=== PATIENT | male | born 2000 | race Caucasian/White ===

== ENCOUNTER 2021-05-11 17:16 | Emergency (ER) | payer OTHER, SELFPAY ==
--- NOTE | ~2021-05-11 | XR_ITS ---
XR wrist RT min 3V 05/11/2021 17:36 INDICATION: Right wrist pain PROCEDURE: 4 views right wrist COMPARISON: No prior studies for comparison. FINDINGS: Fracture, dislocation or subluxation is not identified. The soft tissues appear within norm al limits. No foreign bodies are identified. IMPRESSION: 1: NO ACUTE BONE OR JOINT ABNORMALITY IDENTIFIED. Reviewed, dictated and finalized at location A. D [facility]TAIN
[2021-05-11 17:29] VITALS: BP 106/91; PULSE 75; RESP 16; TEMP 36.8; O2SAT 100
--- NOTE | 2021-05-11 17:31 | ED.UPPEXIN ---
HPI - Extremity Injury (Upper) General Chief Complaint: Extremity Injury, Upper Stated Complaint: rt wrist inj Time Seen by Provider: 05/11/21 17:31 Source: patient, family and RN notes reviewed Mode of arrival: ambulatory Limitations: no limitations History of Present Illness HPI narrative: Morgan is a 20 male patient who ambulated into [facility] accompanied by his girlfriend. Pateint states he hurt right wrist on Friday. He caught an approximately 30lb box that was falling. It landed on right wrist and bent wrist backwards. Patient has used splint, master wrap, heat, and Aspirin for OTC treatment. MD complaint: injury to: right and wrist Related Data Home Medications Medication Instructions Recorded Confirmed No Home Medications 05/11/21 05/11/21 Allergies Allergy/AdvReac Type Severity Reaction Status Date / Time No Known Allergies Allergy Verified 05/11/21 17:32 Review of Systems Review of Systems: CONSTITUTIONAL: Denies body aches, fever, chills, or sweats. EYES: Denies visual changes, redness, or discharge. ENT: Denies rhinorrhea, congestion, sore throat, or otalgia. CARDIOVASCULAR: Denies chest pain, palpitations, or edema. RESPIRATORY: Denies cough or dyspnea. GASTROINTESTINAL: Denies abdominal pain, nausea, vomiting, or diarrhea. GENITOURINARY: Denies dysuria or hematuria. SKIN: Denies rash, itching, or wounds. MUSCULOSKELETAL: Denies back pain, + right wrist pain NEUROLOGIC: Denies headache, numbness, tingling, or weakness. PSYCH: Denies depression or anxiety. All systems reviewed & are unremarkable except as noted in HPI and below PMFSH Comments At time of signature, I have reviewed and agree with nursing past medical, surgical, social and family history unless otherwise noted. Please see nursing chart for further information. There is no relevant family history pertinent to the presenting complaint Exam Narrative: GENERAL: Well-appearing, well-nourished, and in no acute distress. HEAD: Normocephalic, atraumatic. EYES: EOMI. No redness or drainage. Conjunctivae normal. ENT: Mucous membranes pink and moist. Nares clear. No rhinorrhea. TMs normal bilaterally. Throat normal. Uvula midline. NECK: Normal AROM. Supple. No lymphadenopathy. CHEST: No respiratory distress. Clear to auscultation. HEART: Regular rate and rhythm. No murmur appreciated. Normal peripheral pulses. ABDOMEN: Soft, nontender, nondistended, normal active bowel sounds. MUSCULOSKELETAL: No bony tenderness. EXTREMITIES: Moderate edema over capitate and scaphoid, pain with palpation. Full ROM , distal sensation and movement intact right hand. SKIN: Warm, dry, no rash. Capillary refill normal. Normal skin turgor. NEURO: No focal deficits. Alert and oriented x3. Gait steady. PSYCH: Normal affect. No signs of depression or anxiety. Course Vital Signs Vital signs: Vital Signs Temperature 36.8 C 05/11/21 17:29 Pulse Rate 75 05/11/21 17:29 Respiratory Rate 16 05/11/21 17:29 Blood Pressure 106/91 H 05/11/21 17:29 Pulse Oximetry 100 05/11/21 17:29 Temperature 36.8 C 05/11/21 17:29 Pulse Rate 75 05/11/21 17:29 Respiratory Rate 16 05/11/21 17:29 Blood Pressure 106/91 H 05/11/21 17:29 Pulse Oximetry 100 05/11/21 17:29 Reviewed MDM - Extremity Injury (Upper) MDM Narrative Medical decision making narrative: Impressions Wrist X-Ray 05/11/21 17:40 IMPRESSION: 1: NO ACUTE BONE OR JOINT ABNORMALITY IDENTIFIED. Right wrist x-ray is negative. patient to continue master wrap, aleve, and ice. Follow up in 7-10 days for continued symptoms. May return to work with limited use of right wrist for one week. Differential Diagnosis Differential diagnosis: Likely sprain and strain of wrist, fracture of wrist and fracture of hand Medical Records Attestation: I reviewed the patient's medical records. Imaging Data Attestation: I personally reviewed and interpreted this imaging study
== END 2021-05-11 17:49 | disposition home or self-care (01) ==
PROVIDERS: Emergency Provider Nurse Practitioner Family
DX: S63.501A Unspecified sprain of right wrist, initial encounter (principal); S66.911A Strain of unspecified muscle, fascia and tendon at wrist and hand level, right hand, initial encounter; W20.8XXA Other cause of strike by thrown, projected or falling object, initial encounter
CPT/HCPCS: 73110; 99213; G0463